=== PATIENT | male | born 1970 | race Caucasian/White ===

== ENCOUNTER 2023-07-01 11:45 | Outpatient (REF) | payer MEDICAID, SELFPAY ==
[2023-07-01 14:41] LABS: MANUAL DIFF FLAG NO
[2023-07-01 14:51] LABS: Basophils Absolute Auto 0.1 X10*3/uL (0.0-0.2); Basophils Percent Auto 2.1 % (0-2); Eosinophils Absolute Auto 0.1 X10*3/uL (0.0-0.4); Hematocrit 41.8 % (42.0-52.0); Hemoglobin 14.7 g/dl (14.0-18.0); Imm Gran Abs Auto 0.01 X10*3/uL (0.00-0.03); Imm Gran Pct Auto 0.2 % (0.0-0.4); Lymphocytes Absolute Auto 1.7 X10*3/uL (1.2-4.9); Lymphocytes Percent Auto 31.8 % (20-40); Mean Corpuscular HGB Conc 35.2 g/dl (31.0-36.0); Mean Corpuscular Hemoglobin 29.2 pg (27.0-33.0); Mean Corpuscular Volume 83.1 fL (80.0-98.0); Mean Platelet Volume 11.6 fL (9.4-12.4); Monocytes Absolute Auto 0.4 X10*3/uL (0.1-1.2); Monocytes Percent Auto 6.7 % (2-11); Neutrophils Percent Auto 58.2 % (45-73); Platelet Count 198 X10*3/uL (160-400); Red Blood Count 5.03 X10*6/uL (4.60-5.80); Red Cell Distribution Width 12.5 % (11.0-16.0); White Blood Count 5.2 X10*3/uL (4.8-10.8)
[2023-07-01 15:10] LABS: Alanine Aminotransferase 17 U/L (0-40); Albumin Level 4.7 g/dL (3.5-5.0); Alkaline Phosphatase 74 U/L (39-117); Anion Gap 10 (12-20); Aspartate Amino Transferase 22 U/L (5-37); Bilirubin Total 0.6 mg/dL (0.0-1.0); Blood Urea Nitrogen 10 mg/dL (9-16); Calcium 9.9 mg/dL (8.4-10.2); Carbon Dioxide 27 mmol/L (22-29); Chloride 104 mmol/L (96-108); Cholesterol 150 mg/dL (<200); Estimated Glomerular Filt Rate > 60; Glucose Random 96 mg/dL (60-115); HDL Cholesterol 58 mg/dL (>40); LDL Cholesterol Calculated 83 mg/dL (<100); Lipase 10 U/L (8-78); Sodium 137 mmol/L (135-145); Total Protein 7.9 g/dL (6.5-8.0); Triglycerides 49 mg/dL (<150)
[2023-07-02 08:34] LABS: HIV AB/AG Nonreactive (Nonreactive); HIV Num 1 0.05 S/CO (0.00-0.99); ~Hepatitis C Antibody Reactive (Nonreactive)
== END 2023-07-01 11:46 | disposition home or self-care (01) ==
LOC: HO.CHCLDS 11:45
PROVIDERS: Visit Provider Family Medicine
DX: R89.9 Unspecified abnormal finding in specimens from other organs, systems and tissues (principal); E78.5 Hyperlipidemia, unspecified; R10.9 Unspecified abdominal pain
CPT/HCPCS: 36415; 80053; 80061; 83690; 85025; 86803; 87389

== ENCOUNTER 2023-07-05 09:44 | Outpatient (REF) | payer MEDICAID, SELFPAY ==
[2023-07-06 04:28] LABS: ~HepC Num1 1.49 S/CO (0.00-0.79); ~Hepatitis C Antibody Reactive (Nonreactive)
[2023-07-09 18:35] LABS: HCV Log PCR <1.18 NOT DETECTED Log IU/mL (NOT DETECTED); HepC Viral Load <15 NOT DETECTED IU/mL (NOT DETECTED)
== END 2023-07-05 09:45 | disposition home or self-care (01) ==
LOC: HO.CHCLDS 09:44
PROVIDERS: Visit Provider Family Medicine
DX: R89.9 Unspecified abnormal finding in specimens from other organs, systems and tissues (principal)
CPT/HCPCS: 36415; 86803; 87522

== ENCOUNTER 2024-12-11 09:32 | Outpatient (REF) | payer MEDICAID, SELFPAY ==
--- OUTSIDE RECORDS SUMMARY | 2024-12-11 09:46 | XMS_ITS | Encounter Summary ---
Author Organization [employer] Address [address] [facility] [address] [place] [address] Care Team Providers Care Drag Down Name Role Phone Lynn Hernandez MD Primary Care Provider [phone] Reason for Referral * Consultation (Routine) - Pending Review Specialty Diagnoses / Procedures Referred By Contac t Referred To Contact Orthopaedic Surgery Diagnoses Numbness and tingling in right hand Lynn Hernandez MD [address] [place] [address] Phone: tel: fax: Referral ID Status Reason Start Date Expiration Date Visits Requested Visits Authorized [id number] Pending Review Specialty Services Required 12/11/2024 12/11/2025 1 1 * Neurology (Routine) - Pending Review Specialty Diagnoses / Procedures Referred By Contac t Referred To Contact Diagnoses Numbness and tingling in right hand Procedures EMG Lynn Hernandez MD [address] [place] [address] Phone: tel: fax: Referral ID Status Reason Start Date Expiration Date V isits Requested Visits Authorized [id number] Pending Review 12/11/2024 12/11/2025 1 1 * Imaging (Urgent) - Pending Review Specialty Diagnoses / Procedures Referred By Contac t Referred To Contact Radiology Diagnoses Cervical lymphadenopathy Procedures US Head Neck Soft Tissue Lynn Hernandez MD [address] [place] [address] Phone: tel: fax: Referral ID Status Reason Start Date Expiration Date V isits Requested Visits Authorized [id number] Pending Review 12/11/2024 12/11/2025 1 1 Reason for Visit * Reason Comments Swollen Glands Fatigue Vision problems Dizziness Hand and shoulder numbness hand sharp pain Encounter Details Date Type Department Care Team (Latest Contact Info) Description 12/11/2024 8:30 AM EDT Office Visit [facility] [address] [place] [address] Lynn Hernandez MD [address] [place] [address] Cervical lymphadenopathy (Primary Dx); Cervical radiculopathy; Numbness and tingling in right hand; Tiredness; Hyperlipidemia, unspecified hyperlipidemia type; Other fatigue Social History Tobacco Use Types Packs/Day Years Used Date Smoking Tobacco: Every Day Cigarettes Smokeless Tobacco: Never Depression Answer Date Recorded Patient Health Questionnaire-9 Score 14 12/11/2024 Patient Health Questionnaire-9 Score 14 12/11/2024 Last PHQ-9: Questionnaire Data Not on file 0 12/11/2024 Housing Stability Answer Date Recorded What is your housing situation today? I have olesya sing 12/11/[address] you li ve. Do you have problems with any of the following? None of the above 12/11/2024 Food Insecurity Answer Date Recorded Within the past 12 months, y ou worried that your food would run out before you got money to buy more: Never True 12/11/2024 Within the past 12 months,th e food you bought just didn't last and you didn't have enough money to get more: Never True Transportation Answer Date Recorded In the past 12 months, has l ack of transportation kept you from medical appts, meetings, work or from getting things needed for daily living? No 12/11/2024 Utilities Answer Date Recorded In the past 12 months, has t he electric, gas, oil or water company threatened to shut off services in your home? No 12/11/2024 Depression Answer Date Recorded Patient Health Questionnaire-2 Score 4 12/11/2024 Internet Access Answer Date Recorded Internet Access Q1 Yes 12/11/2024 Internet Access Q2 Not on file 12/11/2024 Sex and Gender Information Value Date Recorded Sex Assigned at Male 05/28/2022 10:18 AM EDT Legal Sex Male 10:18 AM EDT Gender Identity Male 05/28/2022 10:18 AM EDT Sexual Orientation Straight 05/28/2022 10 :18 AM EDT documented as of this encounter Last Filed Vital Signs Vital Sign Reading Time Taken Comments Blood Pressure 128/78 12/11/2024 8:44 AM EDT Pulse 84 12/11/2024 8:44 AM EDT Temperature 36.7 ??C (98 ??F) 12/11/2024 8:44 AM EDT Respiratory Rate 20 12/11/2024 8:44 AM EDT Oxygen Saturation 97% 12/11/2024 8:44 AM EDT Inhaled Oxygen Concentration - - Weight 76.3 kg (168 lb 3.2 oz) 12/11/2024 8:44 A M EDT Height 180.3 cm (5' 11 ) 12/11/2024 8:44 AM EDT Body Mass Index 23.46 12/11/2024 8:44 AM EDT documented in this encounter Functional Status * Over the past 2 weeks, how often have you been bothered by any of the following problems? Question Answer Date of Assessment Author Patient Health Questionnaire-2 Score 4 11/26 8:45 AM EDT Mario Merida MA * Little interest or pleasure in doing things Answer Date of Assessment Author Nearly every day 12/11/2024 8:45 AM EDT Mario Merida MA * Feeling down, depressed, or hopeless Answer Date of Assessment Author Several days 12/11/2024 8:45 AM EDT Mario Merida MA * Trouble falling or staying asleep, or sleeping too much Answer Date of Assessment Author Not at all 12/11/2024 8:45 AM EDT Mario Merida MA * Feeling tired or having little energy Answer Date of Assessment Author Nearly every day 12/11/2024 8:45 AM EDMario Moore MA * Poor appetite or overeating Answer Date of Assessment Author Not at all 12/11/2024 8:45 AM EDT Mario Merida MA * Feeling bad about yourself - or that you are a failure or have let yourself or your family down Answer Date of Assessment Author Nearly every day 12/11/2024 8:45 AM EDT Mario Merida MA * Trouble concentrating on things, such as reading the newspaper or watching television Answer Date of Assessment Author Nearly every day 12/11/2024 8:45 AM EDT Mario Merida MA * Moving or speaking so slowly that other people could have noticed? Or the opposite - being so fidgety or restless that you have been moving around a lot more than usual. Answer Date of Assessment Author Not at all 12/11/2024 8:45 AM EDT Mario Merida MA * Thoughts that you would be better off or hurting yourself in some way Answer Date of Assessment Author Several days 12/11/2024 8:45 AM Mario Rinaldi MA * Patient Health Questionnaire-9 Score Answer Date of Assessment Author 14 12/11/2024 8:45 AM EDT Mario Merida MA * How difficult have these problems made it for you to do your work, take care of things at home, or get along with other people? Answer Date of Assessment Author Somewhat difficult 12/11/2024 8:45 AM EDT Mario Koch MA documented as of this encounter Progress Notes * Lynn Hernandez MD - 12/11/2024 8:30 AM EDT Subjective Patient ID: Quinton Ga is a 53 y.o. male who presents for Swollen Glands, Fatigue, Vision problems, Dizziness, Hand and shoulder numbness, and hand sharp pain. Quinton Ga presents with multiple concerns, including lumps on his throat noticed one week ago, fatigue, vision problems, dizziness, and neurological symptoms. He reports a history of neck injury in his thirties. The patient noticed lumps on his throat a week ago, which are not painful and do not cause swallowing difficulties. He describes feeling exhausted, beyond just tired, which he attributes partly to working full-time since his mother's passing in June. Quinton also reports vision problems, describing it as a film on my eyes, and experiences dizziness, particularly when moving his head quickly. Neurological symptoms include numbness in his hands and pain in his shoulders. The numbness is constant, with the right side more affected, involving all fingers except the pinky. He experiences sharp pains in his joints, mainly in his fingers and wrists. The shoulder pain is worse than it was following a neck injury in his thirties. These symptoms impact his sleep, causing him to wake up with numb arms that he has to move around. Quinton reports recent lifestyle changes, including stopping marijuana use three months ago and quitting smoking six weeks ago. He was prescribed Prozac and nicotine by Bhanu Higgins at [facility] to aid in these changes. Review of Systems General: Positive for fatigue, exhaustion. HEENT: Positive for vision problems described as film on eyes, negative for difficulty swallowing. Musculoskeletal: Positive for shoulder pain, joint pain in fingers and wrists. Neurological: Positive for dizziness, numbness in hands, tingling sensation. Objective Visit Vitals BP 128/78 (BP Location: Right arm, Patient Position: Sitting, BP Cuff Size: Adult) Pulse 84 Temp 98 ??F (36.7 ??C) (Oral) Resp 20 Ht 5' 11 (1.803 m) Wt 168 lb 3.2 oz (76.3 kg) SpO2 97% BMI 23.46 kg/m?? Smoking Status Every Day BSA 1.95 m?? Physical Exam Neck: Palpable lumps noted on throat. Left side lump larger than right. Musculoskeletal: Tenderness noted on lateral epicondyle. Neurological: Decreased sensation noted on right side compared to left. Tingling sensation reportedduring nerve function test. Radicular symptoms present. Assessment/Plan Problem List Items Addressed This Visit Hyperlipidemia Relevant Orders Lipid Panel, Standard Cervical lymphadenopathy - Primary Assessment: Patient reports noticing lumps on his throat one week ago. On examination, asymmetry was noted with one side being larger. No associated pain or swallowing difficulties were reported. Given the recent onset and asymmetry, further evaluation is necessary to rule out potential underlying causes. Plan: - Order ultrasound of the neck to evaluate the cervical masses - Evaluate thyroid function as part of the workup Relevant Orders CBC auto differential Comprehensive Metabolic Panel Sed Rate by Modified Westergren T-SPOT??.TB C-reactive Protein Lactate Dehydrogenase (LD) US Head Neck Soft Tissue PTH, Intact Without Calcium Ned-Childers Virus Antibody Panel Cytomegalovirus Antibodies (IgG,IgM) Syphilis Screen Numbness and tingling in right hand Patient reports numbness in hands, pain in shoulders, and sharp pains in joints, particularly fingers and wrists. Symptoms are more pronounced on the right side, with pain in the deltoid and numbnessin all fingers except the pinky. Physical examination revealed tenderness at the lateral epicondyleand decreased sensation. History of neck injury in his thirties is noted. 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 Plan: - Order EMG to assess nerve function - Refer to orthopedic doctor or hand surgeon for further evaluation and management - Unable to perform MRI due to patient's titanium plate Relevant Medications FLUoxetine (PROzac) 20 MG capsule Other Relevant Orders EMG Referral to Orthopaedic Surgery Cervical radiculopathy Relevant Medications FLUoxetine (PROzac) 20 MG capsule Other fatigue Patient reports feeling exhausted, beyond typical tiredness. Recent life stressors include mother'spassing in June and full-time work. Associated symptoms include vision changes (described as a film on eyes) and dizziness, especially with quick head movements. Differential diagnoses include thyroid dysfunction, anemia, and vitamin deficiencies. Plan: - Order comprehensive lab work including: - Thyroid function tests - Complete blood count (to assess for anemia) - Vitamin level tests - Order lipid panel - Follow up with patient to discuss lab results Other Visit Diagnoses Tiredness Relevant Orders TSH W/Reflex to FT4 Vitamin B12/Folate, Serum Panel Future Appointments Date Time Provider Department Center 01/25/2025 4:00 PM Lynn Hernandez MD [facility] documented in this encounter Miscellaneous Notes * Assessment & Plan Note - Lynn Hernandez MD - 12/11/2024 9:17 AM EDT Associated Problem(s): Other fatigue Patient reports feeling exhausted, beyond typical tiredness. Recent life stressors include mother'spassing in June and full-time work. Associated symptoms include vision changes (described as a film on eyes) and dizziness, especially with quick head movements. Differential diagnoses include thyroid dysfunction, anemia, and vitamin deficiencies. Plan: - Order comprehensive lab work including: - Thyroid function tests - Complete blood count (to assess for anemia) - Vitamin level tests - Order lipid panel - Follow up with patient to discuss lab results * Assessment & Plan Note - Lynn Hernandez MD - 12/11/2024 9:17 AM EDT Associated Problem(s): Numbness and tingling in right hand Patient reports numbness in hands, pain in shoulders, and sharp pains in joints, particularly fingers and wrists. Symptoms are more pronounced on the right side, with pain in the deltoid and numbnessin all fingers except the pinky. Physical examination revealed tenderness at the lateral epicondyleand decreased sensation. History of neck injury in his thirties is noted. 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 Plan: - Order EMG to assess nerve function - Refer to orthopedic doctor or hand surgeon for further evaluation and management - Unable to perform MRI due to patient's titanium plate * Assessment & Plan Note - Lynn Hernandez MD - 12/11/2024 9:16 AM EDT Associated Problem(s): Cervical lymphadenopathy Assessment: Patient reports noticing lumps on his throat one week ago. On examination, asymmetry was noted with one side being larger. No associated pain or swallowing difficulties were reported. Given the recent onset and asymmetry, further evaluation is necessary to rule out potential underlying causes. Plan: - Order ultrasound of the neck to evaluate the cervical masses - Evaluate thyroid function as part of the workup documented in this encounter Plan of Treatment Upcoming Encounters Date Type Department Care Team (Late st Contact Info) Description 01/25/2025 4:00 PM EDT Office Visit [facility] [address] [place] [address] Lynn Hernandez MD [address] [place] [address] Scheduled Orders Name Type Priority Associated Diagnoses Orde r Schedule CBC auto differential Lab Routine Cervical lymphadenopathy Expected: 12/11/2024 (Approximate), Expires: 12/11/2025 Comprehensive Metabolic Panel Lab Routine Cervical lymphadenopathy Expected: 12/11/2024 (Approximate), Expires: 12/11/2025 Sed Rate by Modified Westergren Lab Routine Cervical lymphadenopathy Expected: 12/11/2024, Expires: 12/11/2025 T-SPOT??.TB Lab Routine Cervical lymphadenopathy Expected: 12/11/2024 (Approximate), Expires: 12/11/2025 C-reactive Protein Lab Routine Cervical lymphadenopathy Expected: 12/11/2024 (Approximate), Expires: 12/11/2025 Lactate Dehydrogenase (LD) Lab Routine Cervical lymphadenopathy Expected: 12/11/2024 (Approximate), Expires: 12/11/2025 US Head Neck Soft Tissue Imaging Urgent Cervical lymphadenopathy Expected: 12/11/2024, Expires: 12/11/2025 EMG Neurology Routine Numbness and tingling in right hand Expected: 12/11/2024, Expires: 06/13/2025 TSH W/Reflex to FT4 Lab Routine Tiredness Expected: 12/11/2024 (Approximate), Expires: 12/11/2025 Vitamin B12/Folate, Serum Panel Lab Routine Tiredness Expected: 12/11/2024, Expires: 12/11/2025 PTH, Intact Without Calcium Lab Routine Cervical lymphadenopathy Expected: 12/11/2024, Expires: 12/11/2025 Ned-Childers Virus Antibody Panel Lab Routine Cervical lymphadenopathy Expected: 12/11/2024 (Approximate), Expires: 12/11/2025 Cytomegalovirus Antibodies (IgG,IgM) Lab Routine Cervical lymphadenopathy Expected: 12/11/2024 (Approximate), Expires: 12/11/2025 Syphilis Screen Lab Routine Cervical lymphadenopathy Expected: 12/11/2024, Expires: 12/11/2025 Lipid Panel, Standard Lab Routine Hyperlipidemia, unspecified hyperlipidemia type Expected: 12/11/2024 (Approximate), Expires: 12/11/2025 Scheduled Referrals Name Type Priority Associated Diagnoses Order Schedule Referral to Orthopaedic Surgery Outpatient Referral Routine Numbness and tingling in right hand Expected: 12/11/2024 (Approximate), Expires: 12/11/2025 documented as of this encounter Visit Diagnoses Diagnosis Cervical lymphadenopathy- Primary Enlargement of lymph nodes Cervical radiculopathy Brachial neuritis or radiculitis nos Numbness and tingling in right hand Disturbance of skin sensation Tiredness Other malaise and fatigue Hyperlipidemia, unspecified hyperlipidemia type Other fatigue documented in this encounter Additional Health Concerns Assessment Noted Time PHQ-9 Depression Total Score: 14 025 8:45 AM EDT documented as of this encounter Care Teams Drag Down Relationship Specialty Start Date End Date Lynn Hernandez MD [address] [place] [address] PCP - General Family Medicine 05/04/21 [facility] Nurse Practitioner Psychiatry 12/11/24 documented as of this encounter
--- OUTSIDE RECORDS SUMMARY | 2024-12-11 09:46 | XMS_ITS | Encounter Summary ---
Author Organization [employer] Address [address] [facility] [address] [place] [address] Care Team Providers Care School Bus Technician Name Role Phone Lynn Hernandez MD Primary Care Provider [phone] Reason for Visit * Reason Onset Date Comments triage 11/01/2022 Encounter Details Date Type Department Care Team ([facility] st Contact Info) Description 11/01/2022 Telephone [facility] [address] [place] [address] Lynn Hernandez MD [address] [place] [address] triage Social History Tobacco Use Types Packs/Day Years Used Date Smoking Tobacco: Every Day Cigarettes Smokeless Tobacco: Never Sex and Gender Information Value Date Recorded Sex Assigned at Male 05/28/2022 10:18 AM EDT Legal Sex Male 10:18 AM EDT Gender Identity Male 05/28/2022 10:18 AM EDT Sexual Orientation Straight 05/28/2022 10 :18 AM EDT COVID-19 Exposure Response Date Recorded In the last 10 days, have yo u been in contact with someone who was confirmed or suspected to have Coronavirus/COVID-19? No / Unsure 11/01/2022 2:13 PM EDT documented as of this encounter Miscellaneous Notes * Telephone Encounter - Hailee Corral RN - 11/01/2022 12:56 PM EDT Triage call Pt reports possible UTI. Pt reports some nausea, urinary frequency and chills. Neg for fever. Apt made for [facility] 220pm 11/01 . Pt agreed with disposition and home care reviewed. Protocol Used: Urinary Symptoms (Adult) Protocol-Based Disposition: See in Office or Video Visit Today Video visit not offered Positive Triage Question: * Urinating more frequently than usual (i.e., frequency) * All higher-acuity triage questions were negative Care Advice Discussed: * Reasons To Call Back - Fever occurs - Pain or burning with urination - Unable to urinate and bladder feels full - You become worse * Telephone Encounter - Trevor Clements - 11/01/2022 12:11 PM EDT Symptoms: Urination Pain, Nausea But No Vomiting Outcome: Schedule an urgent appointment (within 1 hour) or talk to a nurse or provider soon Reason: Severe pain now The caller accepted this outcome documented in this encounter Plan of Treatment Upcoming Encounters Date Type Department Care Team (Late st Contact Info) Description 01/25/2025 4:00 PM EDT Office Visit [facility] [address] [place] [address] Lynn Hernandez MD [address] [place] [address] documented as of this encounter Visit Diagnoses Not on filedocumented in this encounter Care Teams School Bus Technician Relationship Specialty Start Date End Date Lynn Hernandez MD [address] [place] [id number] PCP - General Family Medicine 05/04/21 [facility] Nurse Practitioner Psychiatry 12/11/24 documented as of this encounter
--- OUTSIDE RECORDS SUMMARY | 2024-12-11 09:46 | XMS_ITS | Encounter Summary ---
Author Organization [employer] Address [address] [place] [address] Care Team Providers Care Export Sales Assistant Name Role Phone Lynn Hernandez MD Primary Care Provider [phone] Reason for Visit * Reason Comments Med Refill Encounter Details Date Type Department Care Team ([facility] Contact Info) Description 08/09/2023 Refill [facility] [address] [place] [address] Lynn Hernandez MD [address] [place] [address] Depressive disorder Social History Tobacco Use Types Packs/Day Years Used Date Smoking Tobacco: Every Day Cigarettes Smokeless Tobacco: Never Housing Stability Answer Date Recorded What is your housing situation today? I have olesya nunes 08/01/[address] you li ve. Do you have problems with any of the following? None of the above 08/01/2023 Food Insecurity Answer Date Recorded Within the past 12 months, y ou worried that your food would run out before you got money to buy more: Sometimes True 2023 Within the past 12 months,th e food you bought just didn't last and you didn't have enough money to get more: Sometimes True 08/01/2023 Transportation Answer Date Recorded In the past 12 months, has l ack of transportation kept you from medical appts, meetings, work or from getting things needed for daily living? No 08/01/2023 Utilities Answer Date Recorded In the past 12 months, has t he electric, gas, oil or water company threatened to shut off services in your home? Yes 08/01/2023 Sex and Gender Information Value Date Recorded Sex Assigned at Male 05/28/2022 10:18 AM EDT Legal Sex Male 10:18 AM EDT Gender Identity Male 05/28/2022 10:18 AM EDT Sexual Orientation Straight 05/28/2022 10 :18 AM EDT documented as of this encounter Plan of Treatment Upcoming Encounters Date Type Department Care Team (Late st Contact Info) Description 01/25/2025 4:00 PM EDT Office Visit [facility] [address] [place] [address] Lynn Hernandez MD [address] [place] [address] documented as of this encounter Visit Diagnoses Diagnosis Depressive disorder Depressive disorder, not elsewhere classified documented in this encounter Care Teams Export Sales Assistant Relationship Specialty Start Date End Date Lynn Hernandez MD [address] [place] [id number] PCP - General Family Medicine 05/04/21 [facility] Nurse Practitioner Psychiatry 12/11/24 documented as of this encounter
--- OUTSIDE RECORDS SUMMARY | 2024-12-11 09:46 | XMS_ITS | Encounter Summary ---
Author Organization [employer] Address [address] [facility] [address] [place] [address] Care Team Providers Care [employer] French Teacher Name Role Phone Lynn Hernandez MD Primary Care Provider [phone] Encounter Details Date Type Department Care Team (Late st Contact Info) Description 06/20/2022 Abstract [facility] [address] [place] [address] ProviderJennifer MD Social History Tobacco Use Types Packs/Day Years Used Date Smoking Tobacco: Never Assessed Sex and Gender Information Value Date Recorded Sex Assigned at Male 05/28/2022 10:18 AM EDT Legal Sex Male 10:18 AM EDT Gender Identity Male 05/28/2022 10:18 AM EDT Sexual Orientation Straight 05/28/2022 10 :18 AM EDT documented as of this encounter Plan of Treatment Upcoming Encounters Date Type Department Care Team (Late st Contact Info) Description 01/25/2025 4:00 PM EDT Office Visit [facility] [address] [place] [address] Lynn Hernandez MD [address] [place] [address] documented as of this encounter Visit Diagnoses Not on filedocumented in this encounter Care Teams [employer] French Teacher Relationship Specialty Start Date End Date Lynn Hernandez MD [address] [place] [address] PCP - General Family Medicine 05/04/21 [facility] Nurse Practitioner Psychiatry 12/11/24 documented as of this encounter
--- OUTSIDE RECORDS SUMMARY | 2024-12-11 09:46 | XMS_ITS | Clinical Summary ---
Author Organization [employer] Address 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 Take 2 tablets by mouth every 24 hours as needed Active hydrOXYzine HCl (Atarax) 25 MG tablet TAKE TWO OR THREE TABLETS TWICE DAILY NEEDED FOR ANXIETY, MAY cause drowsiness 90 tablet 1 023 Active albuterol (Ventolin HFA) 108 (90 Base) MCG/ACT inhaler INHALE 2 PUFFS BY MOUTH EVERY 4-6 HOURS NEEDED 18 g 1 023 Active traZODone (Desyrel) 100 MG tabletIndications :Depressive disorder TAKE ONE TABLET EVERY NIGHT AT BEDTIME 90 tablet 1 024 Active Ventolin HFA 108 (90 Base) MCG/ACT inhaler INHALE TWO PUFFS EVERY 4 HOURS NEEDED FOR WHEEZING 18 g 3 025 Active FLUoxetine (PROzac) 20 MG capsule TAKE ONE CAPSULE BY MOUTH ONCE DAILY WITH 10 MG CAPSULE 025 Active NAC 600 MG capsule TAKE ONE CAPSULE BY MOUTH TWICE DAILY DIRECTED FOR cravings 025 Active nicotine polacrilex (Nicotine Mini) 4 MG lozenge Dissolve 1 lozenge (4 mg) in the mouth every 2 (two) hours if needed for smoking cessation. 100 lozenge 025 2024 Active ARIPiprazole (Abilify) 5 MG tablet Take 5 mg by mouth in the morning. 023 2024 Discontinued cloNIDine (Catapres) 0.1 MG tabletIndications :Depressive disorder TAKE ONE TABLET THREE TIMES DAILY IN THE MORNING, EVENING AND BEDTIME NEEDED 90 tablet 1 024 2024 Discontinued cloNIDine (Catapres) 0.1 MG tabletIndications :Depressive disorder TAKE ONE TABLET BY MOUTH IN THE MORNING AND EVENING NEEDED FOR ANXIETY 180 tablet 3 024 2024 Discontinued(R eorder (will not trigger notification to Pharmacy)) PARoxetine (Paxil) 20 MG tabletIndications :Depressive disorder TAKE ONE TABLET EVERY MORNING 90 tablet 1 024 2024 Discontinued amitriptyline (Elavil) 25 MG tabletIndications :Neuropathy TAKE ONE TABLET EVERY NIGHT AT BEDTIME 90 tablet 1 024 2024 Discontinued lisinopril 20 MG tabletIndications :Hypertension, unspecified type TAKE ONE TABLET EVERY MORNING 90 tablet 1 024 2024 Discontinued rosuvastatin (Crestor) 10 MG tabletIndications :Hyperlipidemia, unspecified hyperlipidemia type TAKE ONE TABLET EVERY NIGHT AT BEDTIME 90 tablet 1 024 2024 Discontinued busPIRone (Buspar) 10 MG tabletIndications :Depressive disorder TAKE ONE TABLET IN THE MORNING AND EVENING 180 tablet 1 024 2024 Discontinued buPROPion XL (Wellbutrin XL) 150 MG 24 hr tablet TAKE ONE TABLET EVERY MORNING 90 tablet 1 024 2024 Discontinued PARoxetine (Paxil) 20 MG tabletIndications :Depressive disorder TAKE ONE TABLET EVERY MORNING 30 tablet 025 2024 Discontinued amitriptyline (Elavil) 25 MG tabletIndications :Neuropathy TAKE ONE TABLET EVERY NIGHT AT BEDTIME 30 tablet 025 2024 Discontinued rosuvastatin (Crestor) 10 MG tabletIndications :Hyperlipidemia, unspecified hyperlipidemia type TAKE ONE TABLET EVERY NIGHT AT BEDTIME 30 tablet 025 2024 Discontinued lisinopril 20 MG tabletIndications :Hypertension, unspecified type TAKE ONE TABLET EVERY MORNING 30 tablet 025 2024 Discontinued cloNIDine (Catapres) 0.1 MG tabletIndications :Depressive disorder TAKE ONE TABLET BY MOUTH IN THE MORNING AND EVENING NEEDED FOR ANXIETY 60 tablet 025 2024 Discontinued Active Problems Problem Noted Date Diagnosed Date Cervical lymphadenopathy 12/11/2024 Assessment & Plan (12/11/2024 9:16 AM EDT): Assessment: Patient reports noticing lumps on his [...] thyroid function as part of the workup Numbness and tingling in right hand 12/11/2024 Assessment & Plan (12/11/2024 9:17 AM EDT): Patient reports numbness in hands, pain in shoulders, and sharp pains in joints, particularly fingers and wrists. Symptoms are more pronounced on the right side, with pain in the deltoid and numbness in all fingers except the pinky. Physical examination revealed tenderness at the lateral epicondyle and decreased sensation. History of neck injury in his thirties is noted. 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 Plan: - Order EMG to assess nerve function - Refer to orthopedic doctor or hand surgeon for further evaluation and management - Unable to perform MRI due to patient's titanium plate Cervical radiculopathy 12/11/2024 Other fatigue 12/11/2024 Assessment & Plan (12/11/2024 9:17 AM EDT): Patient reports feeling exhausted, beyond typical tiredness. Recent life stressors include mother's passing in June and full-time work. Associated symptoms [...] up with patient to discuss lab results Hx of Hep C with self clearance 07/11/2023 Chronic cough 07/01/2023 Assessment & Plan (07/01/2023 11:41 AM EST): Wheezing was present upon examination. As a result, patient will be prescribed an inhaler, and medications, such as: steroids and antibiotics to treat concern. In addition, patient will be sent for imaging: Chest X-Rays for further evaluation. Furthermore, patient will be sent for Pulmonary Function Test. Abnormal laboratory test 07/01/2023 Assessment & Plan (07/01/2023 11:41 AM EST): Patient that presented visit with concerns of having high levels of protein on blood will be sent for labs for further evaluation. -Labs: CBC, Comp. Metabolic Panel. Abdominal pain 07/01/2023 Assessment & Plan (07/01/2023 11:42 AM EST): US Abdomen, R Upper Quadrant -Labs: Lipase. Hyperlipidemia 07/01/2023 Assessment & Plan (07/01/2023 11:42 AM EST): Patient will be sent for labs: Lipid Panel. Alcohol abuse 05/04/2021 Depressive disorder 05/04/2021 Hypertensive disorder 05/04/2021 Encounters Date Type Department Care Team Description 12/11/2024 8:30 AM EDT Office Visit [facility] [address] [place] [address] Lynn Hernandez MD Cervical lymphadenopathy (Primary Dx); Cervical radiculopathy; Numbness and tingling in right hand; Tiredness; Hyperlipidemia, unspecified hyperlipidemia type; Other fatigue 12/11/2024 Travel 12/04/2024 Telephone [facility] [address] [place] [address] Lynn Hernandez MD Nurse Triage 12/01/2024 Refill [facility] [address] [place] [address] Hank Moncada MD Depressive disorder 12/01/2024 Refill [facility] [address] [place] [address] Lynn Hernandez MD Depressive disorder; Neuropathy; Hyperlipidemia, unspecified hyperlipidemia type; Hypertension, unspecified type 09/19/2024 Refill [facility] [address] [place] [address] Lynn Hernandez MD from Last 3 Months Immunizations Immunization Administration Dates Next Due Influenza Injectable Quadriv alant Preservative Free IIV4 MDCK 06/08/2022 MMR 10/28/2024,08/24/2024 Moderna Covid-19 Vaccine 12+ 12/20/2021,12/23/19 21,11/24/2020 Tdap 06/08/2022,09/22/2009 Zoster, Recombinant 06/08/2022 Zoster, live 06/08/2022 Social History Tobacco Use Types Packs/Day Years Used Date Smoking Tobacco: Every Day Cigarettes Smokeless Tobacco: Never Tobacco Cessation:Ready to Q uit: Not Asked; Counseling Given: Not Answered Depression Answer Date Recorded Patient Health Questionnaire-9 Score 14 12/11/2024 Patient Health Questionnaire-9 Score 14 12/11/2024 Last PHQ-9: Questionnaire Data Not on file 0 12/11/2024 Housing Stability Answer Date Recorded What is your housing situation today? I have olesyamina nunes 12/11/[address] you li [...] Orientation Straight 05/28/2022 10 :18 AM EDT Last Filed Vital Signs Vital Sign Reading [...] Mass Index 23.46 12/11/2024 8:44 AM EDT Plan of Treatment Upcoming Encounters Date Type Department Care Team ([facility] st Contact Info) Description 01/25/2025 4:00 PM EDT Office Visit [facility] [address] [place] [address] Lynn Hernandez MD [address] [place] [address] Health Maintenance Due Date Last Done Comments CT Colonography 1969 Colonoscopy 1969 Colorectal Cancer Screening 1969 FIT DNA/Cologuard 1969 FIT 1969 FOBT 1969 Sigmoidoscopy 1969 Hepatitis A Vaccines (1 of 2 - Risk 2-dose series) 1988 Hepatitis B Vaccines (1 of 3 - 19+ 3-dose series) 1988 Pneumococcal Vaccine: 50+ Years (1 of 2 - PCV) 1988 Zoster Vaccines (3 of 3) 08/03/2022 022, 06/08/2022 COVID-19 Vaccine (4 2023-2 5 season) 2024 12/20/2021, 12/22/2020, 11/24/2020 Influenza Vaccine (#1) 2024 06/08/2022 Alcohol/Substance Use Screening 12/11/2025 12/11/2024 Depression Screening 12/11/2025 12/11/2024, 12/11/2024 SDOH Screening 12/11/2025 12/11/2024 Tobacco Screening 12/11/2025 12/11/2024 Lipid Panel 07/01/2028 07/01/2023, 03/30/2022 DTaP/Tdap/Td Vaccines (3 - T d or Tdap) 06/08/2032 06/08/2022, 09/22/2009 RSV Patients and Patients Aged 60 years or older (1 - 1-dose 75+ series) 2044 HIV Screening Completed 07/01/2023, 12/20/2021 HIB Vaccines Aged Out No longer eligi ble based on patient's age to complete this topic HPV Vaccines Aged Out No longer eligi ble based on patient's age to complete this topic IPV Vaccines Aged Out No longer eligi ble based on patient's age to complete this topic Meningococcal B Vaccine Aged Out No l onger eligible based on patient's age to complete this topic Meningococcal Vaccine Aged Out No chiki holger eligible based on patient's age to complete this topic RSV under 20 months Aged Out No longe r eligible based on patient's age to complete this topic Rotavirus Vaccines Aged Out No longer eligible based on patient's age to complete this topic Procedures Procedure Name Priority Date/Time Associated Diagnosis Comments HIV 1/2 ANTIGEN/ANTIBODY, FOURTH GENERATION W/RFL Routine 07/01/2023 11:47 AM EST Encounter for health-related screening LIPID PANEL, STANDARD Routine 07/01/2023 11:47 AM EST Hyperlipidemia, unspecified hyperlipidemia type from Last 3 Months or Most Recently Relevant to Health Maintenance Results * HIV-1/2 Antigen and Antibodies, Fourth Generation, with Reflexes (07/01/2023 11:47 AM EST) HIV AB/AG Nonreactive Nonreactive [facility] Comment:HIV-1 p24 Ag and/or HIV-1/HIV-2 Ab not detected.A test result that is nonreactive does not exclude thepossibility of exposure to or infection with HIV-1 and/orHIV-2. Nonreactive results in this assay for individualswith prior exposure to HIV-1 and/or HIV-2 may be due toantigen and antibody levels that are below the limit ofdetection of this assay.The [employer] HIV Ag/Ab Combo assay result andsupplemental assay results should be interpreted inconjunction with the patient's clinical presentation,history and other laboratory results. If the results areinconsistent with clinical evidence, additional testing issuggested to confirm the result. Blood Venous blood specimen / Unknown 07/01/2023 11:47 AM EST 07/01/2023 2:37 PM EST us Lynn Hernandez MD LAB BLOOD ORDERABLES Final Re sult [facility] [address] [place] [address] [phone] * Lipid Panel, Standard (07/01/2023 11:47 AM EST) Triglycerides 49 <150 mg/dL [facility] Comment:Desirable Triglyceri de: less than 150 mg/dLBorderline High Triglyceride 150-199 mg/dLHigh Triglyceride: 200-499 mg/dLVery High Triglyceride: greater than or equal to 5OO mg/dL Cholesterol 150 <200 mg/dL [facility] Comment:Desirable Cholestero l: less than 200 mg/dLBorderline High Cholesterol: 200-239 mg/dLHigh Cholesterol: greater than 239 mg/dL LDL Cholesterol Calculated 83 <100 mg/dL [facility] Comment:Desirable LDL: less than 100 mg/dLNear Optimal/Above Optimal LDL: 110- 129 mg/dLBorderline High LDL: 130-159 mg/dLHigh LDL: 160-189 mg/dLVery High LDL: greater than or equal to 190 mg/dL HDL Cholesterol 58 >40 mg/dL [facility] Comment:Desirable HDL: great er than 40 mg/dL Note: This HDL assay may give artificially low results in patients with liver disease. 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
--- OUTSIDE RECORDS SUMMARY | 2024-12-11 09:46 | XMS_ITS | Encounter Summary ---
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 Name Role Phone Lynn Hernandez MD Primary Care Provider [phone] Reason for Visit * Reason Comments Med Refill Encounter Details Date Type Department Care Team ([facility] Contact Info) Description 01/28/2023 Refill [facility] [address] [place] [address] Lynn Hernandez MD [address] [place] [address] Social History Tobacco Use Types Packs/Day Years [...] Encounters Date Type Department Care Team (Late Contact Info) Description 01/25/2025 4:00 PM EDT Office Visit [facility] [address] [place] [address] Lynn Hernandez MD [address] [place] [address] documented as of this encounter Visit Diagnoses Not on filedocumented in this encounter Care Teams Pourer Metal Relationship Specialty Start Date End Date Lynn Hernandez MD [address] [place] [address] PCP - General Family Medicine 05/04/21 Bhanu Higgins Nurse Practitioner Psychiatry 12/11/24 documented as of this encounter
--- OUTSIDE RECORDS SUMMARY | 2024-12-11 09:46 | XMS_ITS | Encounter Summary ---
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 I have olesya nunes 12/11/[address] you [...] AM EDT documented as of this encounter Functional Status * Over the [...] 8:45 AM EDT Mario Merida MA * Poor appetite or overeating Answer [...] 8:45 AM EDT Mario Merida MA * Patient Health Questionnaire-9 Score Answer [...] Koch [place] documented as of this encounter Plan of Treatment Upcoming Encounters Date Type Department Care Team (Late st Contact Info) Description 01/25/2025 4:00 PM EDT Office Visit [facility] [address] [place] [address] Lynn Hernandez MD [address] [place] [address] documented as of this encounter Visit Diagnoses Not on filedocumented in this encounter Additional Health Concerns Assessment Noted Time PHQ-9 Depression Total Score: 025 8:45 AM EDT documented as of this encounter Care Teams Leather Production Worker Relationship Specialty Start Date End Date Lynn Hernandez MD [address] [place] [address] PCP - General Family Medicine 05/04/21 [facility] Nurse Practitioner Psychiatry 12/11/24 documented as of this encounter
[2024-12-11 14:31] LABS: MANUAL DIFF FLAG NO
[2024-12-11 14:38] LABS: Basophils Absolute Auto 0.1 X10*3/uL (0.0-0.2); Basophils Percent Auto 1.6 % (0-2); Eosinophils Absolute Auto 0.2 X10*3/uL (0.0-0.4); Hematocrit 38.4 % (42.0-52.0); Hemoglobin 13.7 g/dl (14.0-18.0); Imm Gran Abs Auto 0.02 X10*3/uL (0.00-0.03); Imm Gran Pct Auto 0.3 % (0.0-0.4); Lymphocytes Absolute Auto 1.9 X10*3/uL (1.2-4.9); Lymphocytes Percent Auto 29.7 % (20-40); Mean Corpuscular HGB Conc 35.7 g/dl (31.0-36.0); Mean Corpuscular Hemoglobin 29.4 pg (27.0-33.0); Mean Corpuscular Volume 82.4 fL (80.0-98.0); Mean Platelet Volume 11.3 fL (9.4-12.4); Monocytes Absolute Auto 0.5 X10*3/uL (0.1-1.2); Monocytes Percent Auto 7.8 % (2-11); Neutrophils Absolute Auto 3.6 x10*3/uL (2.0-8.3); Neutrophils Percent Auto 57.6 % (45-73); Platelet Count 197 X10*3/uL (160-400); Red Blood Count 4.66 X10*6/uL (4.60-5.80); Red Cell Distribution Width 12.9 % (11.0-16.0); White Blood Count 6.3 X10*3/uL (4.8-10.8)
[2024-12-11 14:51] LABS: Alanine Aminotransferase 24 U/L (0-40); Albumin Level 4.7 g/dL (3.5-5.0); Alkaline Phosphatase 57 U/L (39-117); Anion Gap 12 (12-20); Aspartate Amino Transferase 29 U/L (5-37); Bilirubin Total 0.7 mg/dL (0.0-1.0); Blood Urea Nitrogen 19 mg/dL (9-16); C Reactive Protein 0.11 mg/dL (< or = 0.50); Calcium 9.8 mg/dL (8.4-10.2); Carbon Dioxide 26 mmol/L (22-29); Chloride 104 mmol/L (96-108); Cholesterol 196 mg/dL (<200); Estimated Glomerular Filt Rate > 60; Glucose Random 99 mg/dL (60-115); HDL Cholesterol 83 mg/dL (>40); LDL Cholesterol Calculated 106 mg/dL (<100); Potassium 4.3 mmol/L (3.3-5.1); Sodium 138 mmol/L (135-145); Total Protein 7.4 g/dL (6.5-8.0); Triglycerides 38 mg/dL (<150)
[2024-12-11 15:01] LABS: Lactate Dehydrogenase 322 U/L (118-273)
[2024-12-11 15:22] LABS: Folate 8.5 ng/mL (> or = 4.0); Vitamin B12 711 pg/mL (200-900)
[2024-12-11 15:28] LABS: Erythrocyte Sedimentation Rate 7 MM/HR (0-15)
[2024-12-11 15:35] LABS: Parathyroid Hormone Intact 56.3 pg/mL (8.7-77.1)
[2024-12-12 06:37] LABS: EBV-NA IgG Index >600.00 U/mL; EBV-VCA IgG Ab >750.00 U/mL; EBV-VCA IgM Ab <36.00 U/mL
[2024-12-12 07:46] LABS: Syphilis Screen Nonreactive (Nonreactive)
[2024-12-14 17:03] LABS: TS Negative Control Passed; TS Panel A 0; TS Panel B 0; TS Positive Control Passed; TSpotTB Negative (Negative)
[2024-12-16 04:19] LABS: Cytomegalovirus Ab IgG >10.00 U/mL; Cytomegalovirus Ab IgM <30.00 AU/mL
== END 2024-12-11 09:33 | disposition home or self-care (01) ==
LOC: HO.CHCLDS 09:32
PROVIDERS: Visit Provider Family Medicine
DX: R59.0 Localized enlarged lymph nodes (principal); E78.5 Hyperlipidemia, unspecified; R53.83 Other fatigue
CPT/HCPCS: 36415; 80053; 80061; 82607; 82746; 83615; 83970; 84443; 85025; 85652; 86140; 86481; 86644; 86645; 86664; 86665; 86780